=== PATIENT | female | born 1950 | race Caucasian/White ===

== ENCOUNTER → 2019-04-29 | Outpatient (CLI) | payer MEDICARE, OTHER ==
[~2019-04-29] VITALS: Ht 175 cm; Wt 94.0 kg
[~2019-04-29] MED LIST: CANA100T PO; CATHETER FLUSH 10 ML SYR IV PRN; FERR-84 PO; FURO-124 PO; FURO40TA4 PO; HYDR-3730 PO; INSASP10V SC; INSU100I14 SC; INSU100I29 SC; INSU100V5 SQ; LEVE1U SQ; LISI-556 PO; METF-144 PO; METF500T8 PO; MTF500T PO; MUPI22OI29 TOP; NYST1POW15 TOP; REGADENOSON 0.4 MG/5 ML SYR (LEXISCAN) IV ONE; SIMV10TA3 PO; SULF-222 PO; TRAM50TA2 PO
[2019-04-29 13:29] VITALS: BP 126/79
[2019-04-29 13:31] VITALS: BP_DIAS 156
--- NOTE | 2019-04-29 19:31 | STRESS TEST ---
DATE OF SERVICE: 04/29/2019 RESTING AND POST REGADENOSON TECHNETIUM-99M TETROFOSMIN SPECT CT IMAGING ORDERING PHYSICIAN: Dr. Randle. PRIMARY PHYSICIAN: Dr. Rose. OTHER PHYSICIAN: Dr. Ramirez. CLINICAL DIAGNOSES: Shortness of breath, palpitations, diabetes. Baseline images were carried out after injection of 11 mCi of technetium-99m Tetrofosmin. This was followed by 0.4 mg regadenoson and 30.7 mCi of technetium-99m Tetrofosmin for stress imaging. The electrocardiogram showed sinus rhythm at baseline. It did not change significantly with the regadenoson infusion. The patient noted mild shortness of breath following regadenoson infusion, which resolved in a few minutes. Review of images at rest and following stress does not indicate any distinct perfusion defects consistent with significant myocardial ischemia or infarction. Gated images show normal global left ventricular systolic function with normal regional wall motion. Left ventricular ejection fraction is calculated to be 65%. Left ventricular end diastolic volume is 41 mL. TID is absent (0.83). CONCLUSIONS: 1. No evidence of any significant myocardial ischemia or infarction on this study. 2. Normal regional wall motion. 3. Normal global left ventricular systolic function with a calculated ejection fraction of 65%. Job ID: [id number] DocumentID: [id number] Dictated Date: 04/29/2019 17:08:15 D[employer] Back Tender Date: 04/29/2019 19:31:04 Dictated By: PHAM RANDLE MD, MA, FACP, FACC,
== END ==
LOC: CARD 10:15
PROVIDERS: ATTEND Internal Medicine Cardiovascular Disease
DX: I48.0 Paroxysmal atrial fibrillation (principal); G47.33 Obstructive sleep apnea (adult) (pediatric); M79.89 Other specified soft tissue disorders; E11.9 Type 2 diabetes mellitus without complications; I65.23 Occlusion and stenosis of bilateral carotid arteries
CPT/HCPCS: 78452; 93017

== ENCOUNTER → 2019-05-05 | Outpatient (CLI) | payer MEDICARE, OTHER ==
[~2019-05-05] MED LIST changes: -CATHETER FLUSH 10 ML SYR IV PRN; -REGADENOSON 0.4 MG/5 ML SYR (LEXISCAN) IV ONE
== END ==
LOC: CARD 12:36
PROVIDERS: ATTEND Internal Medicine Cardiovascular Disease
DX: I65.23 Occlusion and stenosis of bilateral carotid arteries (principal); E11.9 Type 2 diabetes mellitus without complications; M79.89 Other specified soft tissue disorders; G47.33 Obstructive sleep apnea (adult) (pediatric); I48.0 Paroxysmal atrial fibrillation; R00.2 Palpitations
CPT/HCPCS: 93306